=== PATIENT | female | born 1950 | race Hispanic/Latino ===

== ENCOUNTER 2018-10-02 21:21 | Observation (INO) | payer MEDICARE ==
[~2018-10-02] VITALS: Ht 157.5 cm; Wt 83.5 kg
[~2018-10-02 21:21] MED LIST: ASPIRIN EC81 MG PO; BIOTIN PO; BYDUREON2 MG SQ; LECITHIN PO; LEVEMIR100 UNIT/1 SQ; LEVOTHYROXINE100 MCG PO; LOSARTAN POTASS25 MG PO; LUTEIN6 M1 PO; MAGNESIUM PO; METFORMIN HCL500 MG PO; SIMVASTATIN PO; VITAMIN D PO; VITAMIN E400 UNIT PO
--- OUTSIDE RECORDS SUMMARY | 2018-10-02 21:24 | XMS REPORT | Clinical Summary ---
Author Author [facility] Address Unknown Phone Unavailable Care Team Providers Care Family Service Assistant Name Role Phone Julia Santo MD PCP Unavailable Allergies Comments Active Allergy Reactions Severity Noted Date Dry throat and starts coughing Glimepiride Other (See Medium 11/16/2012 Comments) Difficulty talking Lisinopril Other (See Medium 11/16/2012 Comments) Sulfa (Sulfonamide Rash Medium 11/16/2012 Antibiotics) Medications End Date Status Medication Sig Dispensed Refills Start Date Active insulin detemir (LEVEMIR) Inject 20 0 100 unit/mL injection Units into the skin nightly. Active atorvastatin (LIPITOR) 10 Take 10 mg by 0 MG tablet mouth daily. Active levothyroxine (SYNTHROID, Take 100 mcg 0 LEVOTHROID) 100 MCG by mouth tablet daily. Active metFORMIN (GLUCOPHAGE) Take 1,000 mg 0 1000 MG tablet by mouth 2 (two) times daily with breakfast and dinner. Active Problems Not on file Social History Date Tobacco Use Types Packs/Day Years Used Never Smoker Smokeless Tobacco: Never Used Alcohol Use Drinks/Week oz/Week Comments Yes once in a blue carbone Sex Assigned at Date Recorded Not on file Industry Job Start Date Occupation Not on file Not on file Not on file Travel End Travel History Travel Start No recent travel history available. Last Filed Vital Signs Not on file Plan of Treatment Not on file Results Not on fileafter 10/01/2017 Insurance Payer Benefit Subscriber ID Type Phone Address Plan / Group [facility] CARE POS SELECT CHOICE
--- OUTSIDE RECORDS SUMMARY | 2018-10-02 21:25 | XMS REPORT ---
Author Organization Unknown Address [address] [place] [address] Phone [phone] Care Team Providers Care [employer] Operator Name Role Phone DENG 'BASIA' TIFF GUZMAN 3 [phone] RAINE HOUGH DPM FACFAS 120 [phone] GINO GIBSON MD 212 [phone] OSCAR RAO MD 105 [phone] INES ARMSTRONG MD 2 [phone] SANG RAJANSE 111 [phone] Allergies Code Code System Name Reaction Severity Status Onset Lisinopril Cough Active 04/19/2012 180843 RxNorm Glimepiride Active 04/20/2012 Sulfa (Sulfonamide Antibiotics) Active 04/20/2012 865564 RxNorm Amaryl Other Mild to Moderate Active Medications Name Status Start Date Stop Date amoxicillin 875 mg-potassium clavulanate 125 mg tablet Completed 01/09/2016 Aspir-81 81 mg tablet,delayed release Take 1 tablet every day by oral route. Active Not available atorvastatin 10 mg tablet Completed 03/27/2016 atorvastatin 20 mg tablet Take 1 tablet every day by oral route. Active Not available BD Ultra-Fine Short Pen Needle 31 gauge x 5/16" USE UNDER THE SKIN TWICE A DAY Active Not available syxbqakygzbwecj-bdrxyanerawvnyx-GW 2 mg-30 mg-10 mg/5 mL syrup Completed 01/09/2016 cholecalciferol (vitamin D3) 10,000 unit tablet Take 5 tablets every week by oral route. Active Not available ciclopirox 1 % shampoo Completed 03/27/2016 ciprofloxacin 500 mg tablet Completed 01/09/2016 DermacinRx Prizopak 2.5 %-2.5 % topical kit Completed 03/27/2016 diazepam 5 mg tablet Completed 01/09/2016 diclofenac 1.5 % topical drops Completed 03/27/2016 fluconazole 100 mg tablet Take 1 tablet every day by oral route. Active Not available fluocinonide 0.05 % topical solution Completed 03/27/2016 fluticasone 50 mcg/actuation nasal spray,suspension Completed 01/09/2016 Humalog KwikPen (U-100) Insulin 100 unit/mL subcutaneous Inject 5 units 3 times a day by subcutaneous route before meals. Completed 06/03/2017 Humalog KwikPen U-200 Insulin 200 unit/mL (3 mL) subcutaneous Inject 6 units 3 times a day by subcutaneous route before meals. Active Not available Invokana 300 mg tablet Take 1 tablet every day by oral route in the morning for 30 days. Active Not available ketoconazole 2 % topical cream APPLY TO THE AFFECTED AREA(S) BY TOPICAL ROUTE ONCE DAILY for 2 wk Active Not available lecithin Completed 03/27/2016 Levemir FlexTouch U-100 Insulin 100 unit/mL (3 mL) subcutaneous pen Inject 34 units twice a day by sub-q route as directed for 90 days. Completed 06/03/2017 levothyroxine 100 mcg tablet TAKE 1 TABLET BY MOUTH EVERY DAY Active Not available losartan 100 mg tablet TAKE 1 TABLET BY MOUTH DAILY Active Not available meclizine 12.5 mg tablet 1 po tid prn dizziness. Active Not available metformin ER 500 mg tablet,extended release 24 hr TAKE 2 TABLETS BY MOUTH TWICE DAILY DIRECTED Active Not available mometasone 0.1 % topical cream Completed 03/27/2016 montelukast 10 mg tablet Completed 01/09/2016 multivitamin Take one daily Completed 10/01/2016 OneTouch Delica Lancets 33 gauge Active Not available OneTouch Verio strips Check blood sugar 3 times per day Active Not available Anny Zaldivar U-300 Insulin 300 unit/mL (1.5 mL) subcutaneous pen Inject 50 units every day by subcutaneous route in the morning. Active Not available Trulicity 0.75 mg/0.5 mL subcutaneous pen injector Completed 01/09/2016 Trulicity 1.5 mg/0.5 mL subcutaneous pen injector Inject 0.5 mL every week by sub-q route as directed for 84 days. Active 12/26/2016 Not available Vitamin D2 50,000 unit capsule Take 1 capsule every week by oral route as directed. Completed 10/01/2016 Problems Name Status Onset Date Source Hypothyroidism Active 04/17/2012 Mixed Hyperlipidemia Active 04/17/2012 Benign Essential Hypertension Active 04/17/2012 Gastroesophageal Reflux Disease Active 04/19/2012 Allergic Rhinitis Active 10/27/2012 Type II Diabetes Mellitus Uncontrolled Active 10/18/2013 Seborrhea Active 02/18/2014 Procedures Date Name Performed by 06/02/2005 Other Information not available 05/15/2015 Mammogram, Screening Information not available 04/29/2017 MAMMO, Screening, Bilateral [facility] ([facility]) [address] [place] [address] (Work Place) Notes: 12/18/2012: SURGERY APRIL 01, 2014. DR. HOUGH,DISEASE:BROKEN FOOT,COMMENT:03/12/13 UPDATE. IS WEARING BOOT FOR 10 DAYS AND THEN SHOE. HAS HAD THIS PROB FOR 4 MONTHS. CANNOT EXERCISE. CHOLECYSTECTOMY, FOOT SURGERY, SURGERY RIGHT SHOULDER, sinuplasty 12/15 dr jade | 12/18/2012: surgery April 01, 2014. Dr. Hough,disease:BROKEN foot,comment:03/12/13 UPDATE. Is wearing boot for 10 days and then shoe. Has had this prob for 4 months. Cannot exercise. Cholecystectomy foot surgery surgery right shoulder Lab Results Date Name Specimen Result Interpretation Description Value Range Status Address 06/04/2017 Erythrocyte Sedimentation Rate by Westergren Method Normal Sed Rate by Modified Westergren 2 mm/h < or=30 mm/h [facility] Laboratory: [address] [place] [address] 06/03/2017 Hemoglobin a1C, Fingerstick Hemoglobin a1C Fingerstick: 7.3 [facility]: [address] [place] [address] 12/23/2016 CMP, Serum or Plasma Alt 15 U/L 0-55 U/L Final [facility]: [address] [place] [address] Ast 14 U/L 5-34 U/L Final [facility]: [address] [place] [address] Bun 17.0 mg/dL 9.8-20.1 mg/dL Final [facility]: [address] [place] [address] Alk Phos 81 unit/L 40-150 unit/L Final [facility]: [address] [place] [address] High Glucose 162 mg/dL 70-99 mg/dL Final [facility]: [address] Albumin 4.0 g/dL 3.5-5.0 g/dL Final [facility]: [address], [place] Creatinine 0.79 mg/dL 0.57-1.11 mg/dL Final [facility]: [address], [place] eGFR Non- >60 mL/min/1.73m2 >60 mL/min/1.73m2 Final [facility]: [address] Total Bilirubin 0.9 mg/dL 0.2-1.2 mg/dL Final [facility]: [address] [place] [address], [place] eGFR - >60 mL/min/1.73m2 >60 mL/min/1.73m2 Final [facility]: [address], [place] Sodium 139 mEq/L 136-145 mEq/L Final [facility]: [address] [place] [address] Potassium 4.6 mEq/L 3.5-5.1 mEq/L Final [facility]: [address] Chloride 107 mmol/L 98-107 mmol/L Final [facility]: [address] [place] [address], [place] Total Protein 7.2 g/dL 6.4-8.3 g/dL Final [facility] [address] [facility] Calcium 9.0 mg/dL 8.4-10.2 mg/dL Final [facility]: [address] [place] [address] Low Co2 21.4 mmol/L 23.0-31.0 mmol/L Final [facility]: [address] [place] [address], [place] Anion Gap 11 calc Final [facility]: [address], [place] 12/23/2016 Lipid Panel, Serum Hdl 57 mg/dL 40-60 mg/dL Final [facility] [address] [facility] High Triglyceride 242 mg/dL 0-149 mg/dL Final [facility]: [address] [place] [address], [place] VLDL Calc. 48 mg/dL Final [facility]: [address] cholesterol/HDL Ratio 3 mg/dL Final [facility]: [address] non-HDL Cholesterol Calc. 116 mg/dL 0-160 mg/dL Final [facility]: [address] [place] [address] Cholesterol 173 mg/dL 0-199 mg/dL Final [facility]: [address] LDL Calc. 68 mg/dL 0-130 mg/dL Final [facility] [address] [facility] 03/27/2016 CMP, Serum or Plasma Alt 19.0 U/L 0.0-55.0 U/L Final [facility]: [address] Ast 20.0 U/L 5.0-34.0 U/L Final [facility]: [address] Bun 13.0 mg/dL 7.0-20.0 mg/dL Final [facility]: [address] Alk Phos 113.0 unit/L 40.0-150.0 unit/L Final [facility]: [address] High Glucose 151.0 mg/dL 70.0-99.0 mg/dL Final [facility]: [address] Albumin 4.1 g/dL 3.5-5.0 g/dL Final [facility]: [address] [place] [address] Creatinine 0.8 mg/dL 0.6-1.1 mg/dL Final [facility]: [address] [place] [address] eGFR Non- >60 mL/min/1.73m2 >60.0 mL/min/1.73m2 Final [facility]: [address] Total Bilirubin 0.9 mg/dL 0.2-1.2 mg/dL Final [facility]: [address] eGFR - >60 mL/min/1.73m2 >60.0 mL/min/1.73m2 Final [facility]: [address] [place] [address] Sodium 142.0 mEq/L 137.0-144.0 mEq/L Final [facility]: [address] Potassium 4.0 mEq/L 3.5-5.0 mEq/L Final [facility]: [address] [place] [address] Chloride 106.0 mmol/L 101.0-110.0 mmol/L Final [facility]: [address] [place] [address] Total Protein 6.9 g/dL 6.4-8.3 g/dL Final [facility]: [address] [place] [address] Calcium 9.5 mg/dL 8.4-10.2 mg/dL Final [facility]: [address] [place] [address] Co2 25 mmol/L 22-31 mmol/L Final [facility]: [address] [place] [address] Anion Gap 11.0 calc Final [facility]: [address] [place] [address] 03/27/2016 T3, Free, Serum or Plasma T3 Free 2.2 pg/mL 1.7-3.7 pg/mL Final [facility]: [address] [place] [address] 03/27/2016 T4, Free, Serum T4 Free 1.4 NG/dL 0.7-1.5 NG/dL Final [facility]: [address] [place] [address] 03/27/2016 TSH, Serum or Plasma Tsh 0.356 uIU/mL 0.350-4.940 uIU/mL Final [facility]: [address] [place] [address] 03/27/2016 HbA1C (Hemoglobin a1C), Blood High A1C W/eag 7.2 % 1.0-5.7 % Final [facility]: [address] [place] [address] Average Blood Glucose 159.9 mg/dL Final [facility]: [address] [place] [address] 01/09/2016 CMP, Serum or Plasma Alt 12.0 U/L 0.0-55.0 U/L Final [facility]: [address] [place] [address] Ast 16.0 U/L 5.0-34.0 U/L Final [facility]: [address] [place] [address] Bun 16.0 mg/dL 7.0-20.0 mg/dL Final [facility]: [address] [place] [address] Alk Phos 97.0 unit/L 40.0-150.0 unit/L Final [facility]: [address], [place] High Glucose 133.0 mg/dL 70.0-99.0 mg/dL Final [facility]: [address], [place] Albumin 4.1 g/dL 3.5-5.0 g/dL Final [facility]: [address], [place] Creatinine 0.8 mg/dL 0.6-1.1 mg/dL Final [facility]: [address], [place] eGFR Non- >60 mL/min/1.73m2 >60.0 mL/min/1.73m2 Final [facility]: [address], [place] Total Bilirubin 0.9 mg/dL 0.2-1.2 mg/dL Final [facility] [address] [facility] e[facility] - >60 mL/min/1.73m2 >60.0 mL/min/1.73m2 Final [facility]: [address], [place] Sodium 141.0 mEq/L 137.0-144.0 mEq/L Final [facility]: [address], [place] Potassium 4.9 mEq/L 3.5-5.0 mEq/L Final [facility] [address] [facility] Chloride 108.0 mmol/L 101.0-110.0 mmol/L Final [facility] [address] [facility] Total Protein 7.4 g/dL 6.4-8.3 g/dL Final [facility]: [address], [place] Calcium 9.7 mg/dL 8.4-10.2 mg/dL Final [facility] [address] [facility] Low Co2 22.3 mmol/L 23.0-31.0 mmol/L Final [facility] [address] [facility] Anion Gap 10.7 calc Final [facility] [address] [facility] 01/09/2016 Lipid Panel, Serum Hdl 55.0 mg/dL 40.0-60.0 mg/dL Final [facility]: [address] [place] [address] High Triglyceride 211.0 mg/dL 0.0-149.0 mg/dL Final [facility]: [address] VLDL Calc. 42.2 mg/dL Final [facility]: [address] [place] [address] cholesterol/HDL Ratio 4.3 mg/dL Final [facility]: [address] [place] [address] High non-HDL Cholesterol Calc. 179.0 mg/dL 0.0-160.0 mg/dL Final [facility]: [address] [place] [address] High Cholesterol 234.0 mg/dL 0.0-199.0 mg/dL Final [facility]: [address] [place] [address] High LDL Calc. 136.8 mg/dL 0.0-130.0 mg/dL Final [facility]: [address] [place] [address] 01/09/2016 T3, Free, Serum or Plasma T3 Free 2.4 pg/mL 1.7-3.7 pg/mL Final [facility]: [address] [place] [address] 01/09/2016 T4, Free, Serum T4 Free 1.3 NG/dL 0.7-1.5 NG/dL Final [facility]: [address] [place] [address] 01/09/2016 TSH, Serum or Plasma Tsh 0.353 uIU/mL 0.350-4.940 uIU/mL Final [facility]: [address] [place] [address] 01/09/2016 HbA1C (Hemoglobin a1C), Blood High A1C W/eag 6.8 % 1.0-5.7 % Final [facility]: [address] [place] [address] Average Blood Glucose 148.5 mg/dL Final [facility]: [address] [place] [address] 10/11/2015 HbA1C (Hemoglobin a1C), Blood High A1C W/eag 6.9 % 1.0-5.7 % Final [facility]: [address] [place] [address] Average Blood Glucose 151.3 mg/dL Final [facility]: [address] [place] [address] 07/05/2015 HbA1C (Hemoglobin a1C), Blood High A1C W/eag 7.0 % 1.0-5.7 % Final [facility]: [address] Average Blood Glucose 154.2 mg/dL Final [facility]: [address] 07/05/2015 TSH, Serum or Plasma Low Tsh 0.3210 uIU/mL 0.3500-4.9400 uIU/mL Final [facility]: [address] 07/05/2015 T4, Free, Serum T4 Free 1.3 NG/dL 0.7-1.5 NG/dL Final [facility]: [address] 07/05/2015 T3, Free, Serum or Plasma T3 Free 2.5 pg/mL 1.7-3.7 pg/mL Final [facility]: [address] 07/05/2015 Lipid Panel, Serum Hdl 52.0 mg/dL 40.0-60.0 mg/dL Final [facility]: [address] High Triglyceride 244.0 mg/dL 0.0-149.0 mg/dL Final [facility]: [address] VLDL Calc. 48.8 mg/dL Final [facility]: [address] cholesterol/HDL Ratio 3.6 mg/dL Final [facility]: [address] non-HDL Cholesterol Calc. 133.0 mg/dL 0.0-160.0 mg/dL Final [facility]: [address] Cholesterol 185.0 mg/dL 0.0-199.0 mg/dL Final [facility]: [address] LDL Calc. 84.2 mg/dL 0.0-130.0 mg/dL Final [facility]: [address] 07/05/2015 CMP, Serum or Plasma Alt 24.0 U/L 0.0-55.0 U/L Final [facility]: [address] Ast 21.0 U/L 5.0-34.0 U/L Final [facility]: [address] Bun 17.0 mg/dL 7.0-20.0 mg/dL Final [facility]: [address] [place] Alk Phos 92.0 unit/L 40.0-150.0 unit/L Final [facility]: [address], [place] High Glucose 128.0 mg/dL 70.0-99.0 mg/dL Final [facility]: [address], [place] Albumin 4.3 g/dL 3.5-5.0 g/dL Final [facility]: [address], [place] Creatinine 0.7 mg/dL 0.6-1.1 mg/dL Final [facility] [address] [facility] e[facility] Non- 84.8 mL/min/1.73m2 >60.0 mL/min/1.73m2 Final [facility] [address] [facility] High Total Bilirubin 1.3 mg/dL 0.2-1.2 mg/dL Final [facility] [address] [facility] eGFR - 109.0 mL/min/1.73m2 >60.0 mL/min/1.73m2 Final [facility] [address] [facility] Sodium 140.0 mEq/L 137.0-144.0 mEq/L Final [facility] [address] [facility] Potassium 4.6 mEq/L 3.5-5.0 mEq/L Final [facility] [address] [facility] Chloride 105.0 mmol/L 101.0-110.0 mmol/L Final [facility]: [address], [place] Total Protein 7.5 g/dL 6.4-8.3 g/dL Final [facility] [address] [facility] Calcium 10.2 mg/dL 8.4-10.2 mg/dL Final [facility]: [address], [place] Co2 25 mmol/L 23-31 mmol/L Final [facility]: [address] [facility] Anion Gap 10.3 calc Final [facility]: [address], [place] Urinalysis, Dipstick Color Color light yellow [facility]: [address], [place] Color Appearance clear [facility]: [address], [place] Color Glucose 500 [facility]: [address], [place] Color Bilirubin negative [facility]: [address], [place] Color Ketones negative [facility]: [address], [place] Color Specific Moran 1.020 [facility]: [address], [place] Color Blood negative [facility]: [address] [place] Color PH 5.5 [facility]: [address] [place] Color Protein negative [facility]: [address], [place] Color Urobilinogen 0.2 [facility]: [address], [place] Color Nitrites negative [facility]: [address], [place] Color Leukocytes negative [facility]: [address], [place] Past Encounters 09/08/2017 Candidiasis of Skin Deng Santo MD: [address] [facility], [facility] [address] [address], Ph. 06/03/2017 Type II Diabetes Mellitus Uncontrolled Susu Jarvis MD: [address] [facility] [address] [address], Ph. 06/03/2017 Mixed Hyperlipidemia; Benign Essential Hypertension; Vertigo; Headache; Weakness of Left Leg Deng Santo MD: [address] [facility], [facility] [address] [address], Ph. 12/23/2016 Mixed Hyperlipidemia; Benign Essential Hypertension Deng Santo MD: [address] [facility] [address] [address], Ph. 10/01/2016 Type II Diabetes Mellitus Uncontrolled; Hypothyroidism; Benign Essential Hypertension; Mixed Hyperlipidemia Susu Jarvis MD: [address], [facility] [address], [place] [address], Ph. 03/27/2016 Type II Diabetes Mellitus Uncontrolled; Type 2 Diabetes Mellitus; Hypothyroidism; Benign Essential Hypertension Susu Jarvis MD: [address] [facility], [address], [place] [address], Ph. 03/27/2016 Dysuria; Urinary Tract Infectious Disease; Influenza Vaccination; Immunization Deng Santo MD: [address] [facility], [address], [place] [address], Ph. 01/17/2016 Type II Diabetes Mellitus Uncontrolled ALAN Escobedo: [address] [facility], [address], [place] [address], Ph. 01/09/2016 Type 2 Diabetes Mellitus; Benign Essential Hypertension; Mixed Hyperlipidemia; Hypothyroidism; Type II Diabetes Mellitus Uncontrolled Susu Jarvis MD: [address] [facility], [address], [place] [address], Ph. Social History Smoking Status Former Smoker (2 PPD) Vaccine List Vaccine Type influenza, injectable, quadrivalent 02/20/20151 mL 05/12/2017 influenza, injectable, quadrivalent, preservative free 03/27/2016 influenza, seasonal, injectable 02/06/20120.5 mL 02/17/20130.5 mL pneumococcal conjugate PCV 13 03/27/20160.5 mL pneumococcal polysaccharide PPV23 06/02/2008 Tdap 02/18/20140.5 mL zoster 11/30/2014 Plan of Care Patient Instructions NURSING: NEEDS SAMPLES OF TOUJEO and discount card NEEDS HUMALOG SAMPLES AND DISCOUNT CARD 1. Eat breakfast, lunch, dinner everyday. You may also need a snack between meals. 2. Move Levemir to 6am and 6pm 3. Continue other meds but take morning doses in am and pm doses with dinner 4. Continue walking daily. NURSING: NEEDS IPRO TODAY Reminders Provider Appointments None recorded. Lab None recorded. Referral None recorded. Procedures None recorded. Surgeries None recorded. Imaging None recorded. Vitals 09/08/2017 02:15PM Est Patient Height Weight BMI Blood Pressure 5 ft 1.5 in 177.6 lbs 33 kg/m2 122/80 mm[Hg] 06/03/2017 01:45PM Diabetic Height Weight BMI Blood Pressure 5 ft 1.5 in 178 lbs 33.1 kg/m2 136/72 mm[Hg] 06/03/2017 11:15AM Est Patient Height 5 ft 1.5 in 12/23/2016 08:15AM Est Patient Height Weight BMI Blood Pressure 5 ft 1.5 in 179.2 lbs 33.3 kg/m2 114/80 mm[Hg] 10/01/2016 11:00AM Diabetic Height Weight BMI Blood Pressure 5 ft 1.5 in 176.2 lbs 32.8 kg/m2 133/65 mm[Hg] 03/27/2016 01:45PM Diabetic Height Weight BMI Blood Pressure 5 ft 1.5 in 175.4 lbs 32.6 kg/m2 126/56 mm[Hg] 03/27/2016 09:30AM Est Patient Height Weight BMI Blood Pressure 5 ft 1.5 in 175 lbs 32.5 kg/m2 130/84 mm[Hg] 01/09/2016 08:30AM Diabetic Height Weight BMI Blood Pressure 5 ft 1.5 in 170.6 lbs 31.7 kg/m2 124/84 mm[Hg] 12/28/2015 Height Weight BMI Blood Pressure 5 ft 1.5 in 171.2 lbs 31.82 kg/m2 112/74 mm[Hg] 10/11/2015 Height Weight BMI Blood Pressure 5 ft 1.5 in 171.2 lbs 31.82 kg/m2 118/76 mm[Hg] 07/05/2015 Height Weight BMI Blood Pressure 5 ft 1.5 in 177.6 lbs 33.01 kg/m2 133/86 mm[Hg] 04/04/2015 Height Weight BMI Blood Pressure 5 ft 1.5 in 182.5 lbs 33.92 kg/m2 137/77 mm[Hg] 02/20/2015 Height Weight BMI Blood Pressure 5 ft 1.5 in 182.6 lbs 33.94 kg/m2 138/86 mm[Hg] 12/05/2014 Height Weight BMI Blood Pressure 5 ft 1.5 in 187.4 lbs 34.84 kg/m2 122/72 mm[Hg] 11/04/2014 Height Weight BMI Blood Pressure 5 ft 1.5 in 189.5 lbs 35.23 kg/m2 134/69 mm[Hg] 10/26/2014 Height Weight BMI Blood Pressure 5 ft 1.5 in 185.2 lbs 34.43 kg/m2 142/78 mm[Hg] 08/19/2014 Height Weight BMI Blood Pressure 5 ft 1.5 in 186.8 lbs 34.72 kg/m2 161/72 mm[Hg] 05/23/2014 Height Weight BMI Blood Pressure 5 ft 1.5 in 185.2 lbs 34.43 kg/m2 160/81 mm[Hg] 05/04/2014 Height Weight BMI Blood Pressure 5 ft 1.5 in 173 lbs 32.16 kg/m2 140/80 mm[Hg] 03/18/2014 Height Weight BMI Blood Pressure 5 ft 1.5 in 184.9 lbs 34.37 kg/m2 137/72 mm[Hg] 02/18/2014 Height Weight BMI Blood Pressure 5 ft 1.5 in 179.2 lbs 33.31 kg/m2 130/80 mm[Hg] 12/16/2013 Height Weight BMI Blood Pressure 5 ft 1.5 in 178.8 lbs 33.24 kg/m2 (1) 130/88 mm[Hg] (2) 140/73 mm[Hg] 10/22/2013 BMI 33.46 kg/m2 10/22/2013 Height Weight Blood Pressure 5 ft 1.5 in 180 lbs 130/80 mm[Hg] 10/18/2013 Height Weight BMI Blood Pressure 5 ft 1.5 in 178 lbs 33.08 kg/m2 140/69 mm[Hg] 09/20/2013 Height Weight BMI Blood Pressure 5 ft 1.5 in 176.8 lbs 32.86 kg/m2 130/70 mm[Hg] 08/10/2013 Height Weight BMI Blood Pressure 5 ft 1.5 in (1) 179.8 lbs (2) 182.6 lbs (1) 33.42 kg/m2 (2) 33.94 kg/m2 (1) 130/72 mm[Hg] (2) 117/86 mm[Hg] 06/18/2013 Height Weight BMI Blood Pressure 5 ft 3 in 185.2 lbs 32.80 kg/m2 146/82 mm[Hg] 03/12/2013 Height Weight BMI Blood Pressure 5 ft 3 in 183.3 lbs 32.47 kg/m2 137/79 mm[Hg] 02/17/2013 Height Weight BMI Blood Pressure 5 ft 3 in 176.6 lbs 31.28 kg/m2 120/86 mm[Hg] 12/18/2012 Height Weight BMI Blood Pressure 5 ft 3 in 183 lbs 32.41 kg/m2 165/83 mm[Hg] 10/27/2012 Height Weight BMI Blood Pressure 5 ft 3 in 180.8 lbs 32.02 kg/m2 130/90 mm[Hg] 09/04/2012 Height Weight BMI Blood Pressure 5 ft 3 in 179.6 lbs 31.81 kg/m2 143/65 mm[Hg] 04/20/2012 Height Weight BMI Blood Pressure 5 ft 3 in 175 lbs 31.00 kg/m2 130/90 mm[Hg] 04/17/2012 Height Weight BMI Blood Pressure 5 ft 3 in 173 lbs 30.64 kg/m2 142/76 mm[Hg]
[2018-10-02] MEDS ORDERED: SODIUM CHLORIDE 0.9% 1000ML 1,000 ML IV STA (21:47)
[2018-10-02] MEDS ORDERED: ONDANSETRON HCL INJ 2MG/ML 2ML 2 MG/ML VIAL IV ONE (21:47)
[2018-10-02] MEDS ORDERED: PANTOPRAZOLE 40 MG 10ML VIAL IV ONE (21:47)
[2018-10-02 22:05] LABS: BASOPHILS % 0.3 % (0.0-1.0); EOSINOPHILS % 0.3 % (0.0-6.0); HEMATOCRIT 42.4 % (34.2-44.1); HEMOGLOBIN 14.6 g/dL (12.0-16.0); LYMPHOCYTES # (AUTO) 1.6 (1.0-3.2); LYMPHOCYTES % 11.9 % (18.0-39.1); MEAN CORPUSCULAR HEMOGLOBIN 31.8 pg (28-32); MEAN CORPUSCULAR HGB CONC 34.4 g/dL (31-35); MEAN CORPUSCULAR VOLUME 92.4 fL (81-99); MONOCYTES # (AUTO) 0.9 (0.2-0.8); MONOCYTES % 6.4 % (4.4-11.3); NEUTROPHILS # (AUTO) 10.9 (2.1-6.9); NEUTROPHILS % 80.7 % (38.7-80.0); PLATELET COUNT 282 x10e3/uL (140-360); RED BLOOD COUNT 4.59 x10e6/uL (3.6-5.1); RED CELL DISTRIBUTION WIDTH 12.2 % (11.7-14.4)
[2018-10-02] MEDS ORDERED: MORPHINE SULFATE INJ 4 MG/ML INJ 1ML ONE (22:07)
[2018-10-02] MEDS ORDERED: MORPHINE SULFATE INJ 4 MG/ML INJ 1ML IV STA (22:09)
[2018-10-02 22:23] LABS: ALANINE AMINOTRANSFERASE 22 IU/L (0-55); ALBUMIN 4.2 g/dL (3.5-5.0); ALBUMIN/GLOBULIN RATIO 1.2 (0.8-2.0); ALKALINE PHOSPHATASE 93 IU/L (40-150); ANION GAP 14.7 mmol/L (8-16); BLOOD UREA NITROGEN 18 mg/dL (7-26); BUN/CREATININE RATIO 22 (6-25); CARBON DIOXIDE 26 mmol/L (22-29); CHLORIDE 97 mmol/L (98-107); CREATINE KINASE 147 IU/L (29-168); CREATININE, SERUM 0.82 mg/dL (0.57-1.11); EST GLOMERULAR FILTRATION RATE > 60 ML/MIN (60-); GLUCOSE 160 mg/dL (74-118); LIPASE 23 U/L (8-78); POTASSIUM 3.7 mmol/L (3.5-5.1); SODIUM 134 mmol/L (136-145)
--- NOTE | 2018-10-02 22:23 | NUR ---
dr tillman reduced hernia, pt tolerated well. awake alert skin w/d resp nonlab, nad noted.
--- NOTE | 2018-10-02 22:45 | NUR ---
denies pain, vomited x1. awake alert skin w/d resp nonlab. nad noted
[2018-10-02] MEDS ORDERED: SODIUM CHLORIDE 0.9% 50ML 50 ML ONE (22:53)
[2018-10-02] MEDS ORDERED: IOPAMIDOL 370 MG/ML 200 ML INFUS..BTL INJ ONE (22:53)
--- NOTE | 2018-10-02 23:01 | NUR ---
pt states she is having cont nausea, states she thinks her sugar is low, fsbs 177. pt to ct
--- NOTE | 2018-10-02 23:45 | Diagnostic Imaging Report ---
EXAM: CT Abdomen and Pelvis WITH contrast INDICATION: ^abd pain COMPARISON: None. TECHNIQUE: Abdomen and pelvis were scanned utilizing a multidetector helical scanner from the lung base to the pubic symphysis after administration of IV contrast. Coronal and sagittal reformations were obtained. Dose modulation, iterative reconstruction, and/or weight based adjustment of the mA/kV was utilized to reduce the radiation dose to as low as reasonably achievable. Routine protocol was performed. Scan was performed when during portal venous phase. IV CONTRAST: 100 mL of Isovue-370 ORAL CONTRAST: Water COMPLICATIONS: None RADIATION DOSE: Total DLP: 698.01 mGy*cm Estimated effective dose: (DLP x 0.015 x size factor) mSv CTDIvol has been reviewed. It is below the limits set by the Radiation Protocol Committee (RPC). FINDINGS: LINES and TUBES: None. LOWER THORAX: Mild bibasilar subsegmental atelectasis. A small left Bochdalek hernia. HEPATOBILIARY: Small foci of fat deposition adjacent to the falciform ligament. No focal hepatic lesions. Mild intra and extra hepatic biliary dilatation, likely due to reservoir effect. GALLBLADDER: Surgically absent. SPLEEN: No splenomegaly. PANCREAS: No focal masses or ductal dilatation. ADRENALS: 0.7 cm left and 1.3 cm right adrenal nodules. KIDNEYS/URETERS: Kidneys enhance symmetrically. No hydronephrosis. No cystic or solid mass lesions. No stones. GI TRACT: No abnormal distention, wall thickening, or evidence of bowel obstruction. Fluid-filled loops of small bowel. Mild colonic diverticulosis without evidence of diverticulitis. Appendix is normal. PELVIC ORGANS/BLADDER: Unremarkable. LYMPH NODES: No lymphadenopathy. VESSELS: Unremarkable. PERITONEUM / RETROPERITONEUM: No free air. Trace ascites. BONES: Unremarkable. SOFT TISSUES: Small fat-containing umbilical and right inguinal hernia. IMPRESSION: 1. Fluid-filled loops of small bowel, could represent gastroenteritis in the appropriate clinical context. Otherwise, no acute inflammatory process in the abdomen/pelvis. 2. Trace ascites. 3. Cholecystectomy with mild biliary dilatation, likely due to post cholecystectomy reservoir effect. 4. Bilateral adrenal nodules can be further characterized with nonurgent adrenal mass protocol CT. Signed by: Dr. Demarcus Adams MD on 10/02/2018 11:42 PM
[2018-10-03 01:17] LABS: CLARITY,URINE HAZY (CLEAR); COLOR,URINE YELLOW (YELLOW); LEUKOCYTE ESTERASE ,URINE 1+ (NEGATIVE); NITRITE,URINE NEGATIVE (NEGATIVE)
[2018-10-03 01:18] LABS: BACTERIA,URINE MANY /HPF; BILIRUBIN,URINE NEGATIVE (NEGATIVE); EPITHELIAL CELLS,URINE MODERATE /LPF; KETONES,URINE NEGATIVE (NEGATIVE); PROTEIN,URINE DIPSTICK NEGATIVE (NEGATIVE); RBC,URINE 0-5 /HPF (0-5); URINE UROBILINOGEN 0.2 mg/dL (0.2 - 1); WBC,URINE (MAN) >50 /HPF (0-5)
[2018-10-03 01:19] LABS: AMORPHOUS SEDIMENT,URINE MODERATE (FEW)
[2018-10-03] MEDS ORDERED: ONDANSETRON HCL INJ 2MG/ML 2ML 2 MG/ML VIAL IV STA (01:39)
[2018-10-03] MEDS ORDERED: MECLIZINE HCL 12.5 MG TAB PO STA (01:39)
[2018-10-03] MEDS ORDERED: MECLIZINE HCL 12.5 MG TAB ONE (01:43)
[2018-10-03] MEDS ORDERED: ONDANSETRON HCL INJ 2MG/ML 2ML 2 MG/ML VIAL ONE (01:43)
[2018-10-03] MEDS ORDERED: CEFTRIAXONE SOD 1 GM/NS 50 ML 50 ML IV ONE (01:45)
[2018-10-03] MEDS: SODIUM CHLORIDE 0.9% 1000ML 1,000 ML IV SCH ×2 (02:13→14:33)
--- NOTE | 2018-10-03 02:13 | NUR ---
pt states she feels worse after medications, cont to complain of nausea and dizziness. dr tillman aware. awake alert skin w/d resp nonlab. nad noted.
[2018-10-03] MEDS ORDERED: METRONIDAZOLE 500MG/NS 100ML 100 ML IV SCH (02:15)
[2018-10-03] MEDS ORDERED: CIPROFLOXACIN 400 MG/D5W 200ML 200 ML IV SCH (02:15)
[2018-10-03] MEDS ORDERED: LOSARTAN POTAS100 MG PO (02:26)
[2018-10-03] MEDS ORDERED: ATORVASTATIN CA20 MG PO (02:26)
[2018-10-03] MEDS ORDERED: ACTOS15 MG PO (02:26)
[2018-10-03] MEDS ORDERED: TOUJEO SC (02:26)
--- OUTSIDE RECORDS SUMMARY | 2018-10-03 02:43 | XMS REPORT | Clinical Summary ---
Author Author [facility] Address Unknown Phone Unavailable Care Team Providers Care Director Of Student Aid Name Role Phone Julia Santo MD PCP [...] Not on file Results Not on fileafter 10/02/2017 Insurance Payer Benefit Subscriber ID Type Phone Address Plan / Group [facility] HMO/POS CARE POS SELECT CHOICE
--- OUTSIDE RECORDS SUMMARY | 2018-10-03 02:43 | XMS REPORT ---
[facility] Address Unknown Phone Unavailable Care Team Providers Care Pattern And Chain Maker Name Role Phone Jose TOLLIVER Unavailable Unavailable Problems This patient has no known problems. Allergies, Adverse Reactions, Alerts This patient has no known allergies or adverse reactions. Medications This patient has no known medications. Results Test Description Test Time Test Comments Text Results Atomic Results Result Comments CT ABDOMEN/PELVIS W 2018-10-02 23:15:00 [place] [address] Patient Name: ELISSA COREAS MR #: [id number] : 1950 Age/Sex: 67/F Req #: [id number] Adm Physician: Ordered by: OWEN TOLLIVER MD Report #: [id number] Location: ER Room/Bed: Procedure: [id number] CT/CT ABDOMEN/PELVIS W Exam Date: Exam Time: REPORT STATUS: Signed EXAM: CT Abdomen and Pelvis WITH contrast INDICATION: abd pain COMPARISON: None. TECHNIQUE: Abdomen and pelvis were scanned utilizing a multidetector helical scanner from the lung base to the pubic symphysis after administration of IV contrast. Coronal and sagittal reformations were obtained. Dose modulation, iterative reconstruction, and/or weight based adjustment of the mA/kV was utilized to reduce the radiation dose to as low as reasonably achievable. Routine protocol was performed. Scan was performed when during portal venous phase. IV CONTRAST: 100 mL of Isovue-370 ORAL CONTRAST: Water COMPLICATIONS: None RADIATION DOSE: Total DLP: 698.01 mGy*cm Estimated effective dose: (DLP x 0.015 x size factor) mSv CTDIvol has been reviewed. It is below the limits set by the Radiation Protocol Committee (RPC). FINDINGS: LINES and TUBES: None. LOWER THORAX: Mild bibasilar subsegmental atelectasis. A small left Bochdalek hernia. HEPATOBILIARY: Small foci of fat deposition adjacent to the falciform ligament. No focal hepatic lesions. Mild intra and extra hepatic biliary dilatation, likely due to reservoir effect. GALLBLADDER: Surgically absent. SPLEEN: No splenomegaly. PANCREAS: No focal masses or ductal dilatation. ADRENALS: 0.7 cm left and 1.3 cm right adrenal nodules. KIDNEYS/URETERS: Kidneys enhance symmetrically. No hydronephrosis. No cystic or solid mass lesions. No stones. GI TRACT: No abnormal distention, wall thickening, or evidence of bowel obstruction. Fluid- filled loops of small bowel. Mild colonic diverticulosis without evidence of diverticulitis. Appendix is normal. PELVIC ORGANS/BLADDER: Unremarkable. LYMPH NODES: No lymphadenopathy. VESSELS: Unremarkable. PERITONEUM / RETROPERITONEUM: No free air. Trace ascites. BONES: Unremarkable. SOFT TISSUES: Small fat-containing umbilical and right inguinal hernia. IMPRESSION: 1. Fluid-filled loops of small bowel, could represent gastroenteritis in the appropriate clinical context. Otherwise, no acute inflammatory process in the abdomen/pelvis. 2. Trace ascites. 3. Cholecystectomy with mild biliary dilatation, likely due to post cholecystectomy reservoir effect. 4. Bilateral adrenal nodules can be further characterized with nonurgent adrenal mass protocol CT. Signed by: Dr. Demarcus Chambers MD on 10/02/2018 11:42 PM Dictated By: DEMARCUS CHAMBERS MD 41 Transcribed By: STEPHANY on 10/02/182341 COPY TO: OWEN TOLLIVER MD
[2018-10-03] MEDS ORDERED: PROMETHAZINE HCL (IM) 25 MG/ML VIAL IM ONE (04:15)
[2018-10-03] MEDS ORDERED: PROMETHAZINE HCL (IM) 25 MG/ML VIAL IM PRN (04:15)
[2018-10-03] MEDS ORDERED: PROMETHAZINE 25MG/SOD CHL 0.9% 50 ML ONE (04:19)
[2018-10-03 04:30] VITALS: BP 136/62
[2018-10-03] MEDS ORDERED: PROMETHAZINE 25MG/ NS 50ML (IV) IV ONE (04:30)
--- NOTE | 2018-10-03 04:30 | NUR ---
Received patient from the E.R. via stretcher. Patient is able to tranfer to bed from stretcher with assistance. Drowsy but arousable. IV to right AC 20G intact. Patient was oriented to room. Call light within reached.
[2018-10-03 05:53] VITALS: BP 136/62
[2018-10-03] MEDS ORDERED: ACETAMINOPHEN 325 MG TAB PO PRN (07:15)
[2018-10-03] MEDS ORDERED: ONDANSETRON HCL INJ 2MG/ML 2ML 2 MG/ML VIAL IV PRN (07:45)
[2018-10-03] MEDS ORDERED: DEXTROSE 50% SYRINGE 50 ML IV PRN (07:45)
[2018-10-03 07:59] VITALS: BP 108/55
[2018-10-03] MEDS: INSULIN REGULAR, HUMAN 100 UNIT/1 ML 3ML VIAL SQ SCH ×2 (08:03→12:25)
[2018-10-03 08:06] VITALS: BP 108/55
--- NOTE | 2018-10-03 09:21 | NUR ---
CASE MANAGEMENT INITIAL ASSESSMENT Glassware Verifier to bedside to discuss plan of care with patient/family. CM/SW role and care transitions discussed. Anticipated discharge plan discussed along with duration of care. CM/SW discussed patients right to make decisions in care. CM/SW work hours given. Patient lives: SON Admit/Transfer: ED Hospital/ER visits since last admit:0 POA/Emergency contact: SON: TERESA [phone] Current/Previous Home Health: NONE PCP/Follow-up Care: DR. BASIA MATTHEW Current/Previous DME: NONE Medications (referring to index hospitalization or the first time you were in the hospital) a. Were changes made in your medications when you were in the hospital on [date of index hospitalization]? Yes X No Not sure Explain: Note: If no or not sure, please skip to question d b. Did you understand the changes? Yes No Explain: c. Were you able to obtain your new medications right away? Yes No n/a SNF only Explain: d. Were you able to take your medications like the doctor wanted you to? X Yes No Explain: e. Did the hospital give you an accurate, easy to understand list of medications when you left? Yes No n/a SNF only Explain: NO PREVIOUS HOSP VISIT Scale of 1-10 how comfortable does patient feel with disease management in outpatient settin Other Services: 0 Employment Status: RETIRED Areas of Concerns: NONE Referral Needs: NO Education Needs: EDUCATED ON BECKER LETTER IMM/BECKER given and signed (if applicable): YES, BECKER Goal for discharge:RETURN HOME WITH SON CM/SW left business card at the bedside with contact information. Name and number was also written on the patients whiteboard. Patient verbalized understanding of discussion. CM will follow-up with ongoing discharge and transition of care needs.
[2018-10-03 12:36] VITALS: BP 110/56
--- NOTE | 2018-10-03 15:17 | NUR ---
blood sugar 51. sandwich and apple juice given.
[2018-10-03 16:03] VITALS: BP 102/54
[2018-10-03 19:54] LABS: BASOPHILS % 0.4 % (0.0-1.0); EOSINOPHILS # (AUTO) 0.1 (0.0-0.4); EOSINOPHILS % 1.5 % (0.0-6.0); HEMATOCRIT 34.9 % (34.2-44.1); LYMPHOCYTES # (AUTO) 2.3 (1.0-3.2); MEAN CORPUSCULAR HGB CONC 33.5 g/dL (31-35); MEAN CORPUSCULAR VOLUME 95.4 fL (81-99); MONOCYTES # (AUTO) 0.9 (0.2-0.8); MONOCYTES % 11.9 % (4.4-11.3); NEUTROPHILS # (AUTO) 4.5 (2.1-6.9); NEUTROPHILS % 57.1 % (38.7-80.0); PLATELET COUNT 235 x10e3/uL (140-360); RED BLOOD COUNT 3.66 x10e6/uL (3.6-5.1); RED CELL DISTRIBUTION WIDTH 12.6 % (11.7-14.4)
[2018-10-03] MEDS ORDERED: KEFLEX500 MG PO (19:55)
[2018-10-03] MEDS ORDERED: FAMOTIDINE20 MG PO (19:55)
[2018-10-03 20:10] LABS: INR 0.9; PROTHROMBIN TIME 12.6 seconds (11.9-14.5)
--- NOTE | 2018-10-03 20:10 | NUR ---
dr. perez notified that patient hgb dropped from 14.6 to 11.7. No new orders. states to continue discharge patient.
[2018-10-03 20:11] LABS: HEMOGLOBIN 11.7 g/dL (12.0-16.0); PARTIAL THROMBOPLASTIN TIME 30.4 seconds (23.8-35.5)
[2018-10-03 20:18] LABS: CHOL/HDL RATIO 1.8 (3.0-3.6)
--- NOTE | 2018-10-03 20:25 | NUR ---
Patient was discharged alert and oriented with no complaints.
[2018-10-03 20:27] LABS: ALANINE AMINOTRANSFERASE 178 IU/L (0-55); ALBUMIN/GLOBULIN RATIO 1.1 (0.8-2.0); ALKALINE PHOSPHATASE 99 IU/L (40-150); ANION GAP 10.9 mmol/L (8-16); BLOOD UREA NITROGEN 17 mg/dL (7-26); BUN/CREATININE RATIO 21 (6-25); CALCIUM 8.5 mg/dL (8.4-10.2); CARBON DIOXIDE 26 mmol/L (22-29); CHLORIDE 106 mmol/L (98-107); CREATININE, SERUM 0.82 mg/dL (0.57-1.11); EST GLOMERULAR FILTRATION RATE > 60 ML/MIN (60-); GLUCOSE 188 mg/dL (74-118); POTASSIUM 3.9 mmol/L (3.5-5.1); SODIUM 139 mmol/L (136-145)
[2018-10-04] MEDS ORDERED: LEVOTHYROXINE SODIUM 100 MCG TAB PO SCH (06:00)
[2018-10-04] MEDS ORDERED: FAMOTIDINE 20 MG TAB PO SCH (07:30)
[2018-10-04] MEDS ORDERED: LOSARTAN POTASSIUM 100 MG TAB PO SCH (09:00)
[2018-10-04] MEDS ORDERED: ENOXAPARIN SOD INJ 40 MG/0.4 ML SYR SC SCH (17:00)
[2018-10-04] MEDS ORDERED: ATORVASTATIN 20 MG TAB PO SCH (21:00)
== END 2018-10-03 19:50 | disposition home or self-care (01) ==
LOC: ER 21:21 → ERHOLD 10-03 02:40 → IMCU 10-03 04:29
PROVIDERS: ADMIT Internal Medicine; ATTEND Internal Medicine
DX: A04.4 Other intestinal Escherichia coli infections (principal); N30.01 Acute cystitis with hematuria; K42.9 Umbilical hernia without obstruction or gangrene; E83.52 Hypercalcemia; Z88.2 Allergy status to sulfonamides; Z88.8 Allergy status to other drugs, medicaments and biological substances
CPT/HCPCS: 36415; 74177; 80053 ×2; 80061; 81001; 82330; 82550; 82553; 82948 ×2; 83036; 83690; 83970; 84484; 85025 ×2; 85610; 85730; 87040; 87086; 96374; 99284; C9113; G0378; J0696; J0744; J1817; J2270; J2405 ×2; J2550; J7030 ×2; J8597; Q9967

== ENCOUNTER → 2019-11-25 | Emergency (ER) | payer MEDICARE ==
[~2019-11-25] VITALS: Ht 157.5 cm; Wt 83.5 kg
[~2019-11-25] MED LIST changes: +ACTOS15 MG PO; +ATORVASTATIN CA20 MG PO; +FAMOTIDINE20 MG PO; +KEFLEX500 MG PO; +LOSARTAN POTAS100 MG PO; +TOUJEO SC
--- NOTE | 2019-11-25 18:34 | Emergency Department Note ---
History of Present Illnes History of Present Illness Chief Complaint: General Medicine Complaints History of Present Illness This is a 69 year old female arrives to the ED with right calf pain, patient states pain started while she was driving and she had to ticket puller and shake her leg out. She states she is very worried she may have a DVT because her son checked it on his computer. Patient denies any history of DVTs, no history o f a PE Historian: Patient Arrival Mode: Car Onset (how long ago): hour(s) Radiation: Reports non-radiation Severity: mild Onset quality: sudden Timing of current episode: intermittent Progression: resolved Chronicity: recurrent Relieving factors: none Exacerbating factors: none Past Medical/Family History Physician Review I have reviewed the patient's past medical and family history. Any updates have been documented here. Past Medical History Recent Fever: No Clinical Suspicion of Infectio: No New/Unexplained Change in Ment: No Past Medical History: Hypertension, Diabetes, GERD, Hyperlipedemia Past Surgical History: Cholecysctectomy, PCI Social History Smoking Cessation: Never Smoker Counseling Performed: Yes Alcohol Use: None Any Illegal Drug Use: No TB Exposure/Symptoms: No Physically hurt or threatened: No Family History Family history of heart diseas: No Other Last Tetanus: UTD Any Pre-Existing Lines (PICC,: No Is patient up to date on immun: Yes Last Flu: 2019 Last Pneumovax: unknown Review of Systems Review of Systems Constitutional: Reports no symptoms EENTM: Reports no symptoms Cardiovascular: Reports no symptoms Respiratory: Reports no symptoms Gastrointestinal: Reports no symptoms Genitourinary: Reports no symptoms Musculoskeletal: Reports as per HPI Integumentary: Reports no symptoms Neurological: Reports no symptoms Psychological: Reports no symptoms Endocrine: Reports no symptoms Hematological/Lymphatic: Reports no symptoms Physical Exam Related Data Allergies: Coded Allergies: Sulfa (Sulfonamide Antibiotics) (Verified Allergy, Mild, HIVES, 11/25/19) glimepiride (Verified Allergy, Mild, "TONGUE TIE, BITE MY TONGUE", 11/25/19) lisinopril (Verified Allergy, Mild, "TONGUE TIE, BITE MY TONGUE", 11/25/19) Triage Vital Signs Vital Signs Date Time Temp Pulse Resp B/P (MAP) Pulse Ox O2 Delivery O2 Flow Rate FiO2 11/25/19 17:16 98.8 79 20 142/59 99 Vital signs reviewed: Yes Physical Exam CONSTITUTIONAL Constitutional: Present well-developed, Present well-nourished HENT HENT: Present normocephalic, Present atraumatic, Present oropharynx clear/moist, Present nose normal HENT L/R: Present left ext ear normal, Present right ext ear normal EYES Eyes: Reports PERRL, Reports conjunctivae normal NECK Neck: Present ROM normal PULMONARY Pulmonary: Present effort normal, Present breath sounds normal CARDIOVASCULAR Cardiovascular: Present regular rhythm, Present heart sounds normal, Present capillary refill normal, Present normal rate GASTROINTESTINAL Abdominal: Present soft, Present nontender, Present bowel sounds normal GENITOURINARY Genitourinary: Present exam deferred SKIN Skin: Present warm, Present dry MUSCULOSKELETAL Musculoskeletal: Present ROM normal NEUROLOGICAL Neurological: Present alert, Present oriented x 3, Present no gross motor or sensory deficits PSYCHOLOGICAL Psychological: Present mood/affect normal, Present judgement normal Assessment & Plan Medical Decision Making MDM 69 female arrived to the ED of right calf pain, patient calf soft, no tenderness, normal to touch, compartments are soft. Spoke to patient at length about low suspicion of a DVT given her description of symptoms and spontaneously resolution. Patient informed likely may have been a muscle spasm, patient expressed understanding states she still would like a DVT. Patient signed out to Dr. Gracia to follow-up lower extremity duplex, patient will likely be discharged home. Assessment & Plan Final Impression: (1) Calf pain Depart Disposition: HOME, SELF-CARE Last Vital Signs Date Time Temp Pulse Resp B/P (MAP) Pulse Ox O2 Delivery O2 Flow Rate FiO2 11/25/19 18:01 70 16 112/69 100 11/25/19 17:16 98.8 Home Meds Active Scripts Cephalexin Monohydrate (KEFLEX) 500 Mg Capsule, 500 MG PO Q12H for 5 Days Prov:ROBE BHAKTA MD 10/03/18 Famotidine (FAMOTIDINE) 20 Mg Tab, 20 MG PO BIDAC for 30 Days, TAB Prov:ROBE BHAKTA MD 10/03/18 Reported Medications [Toujeo] 300 UNITS No Conflict Check, 35 UNITS SC DAILY 10/03/18 Atorvastatin Calcium (ATORVASTATIN CALCIUM) 20 Mg Tablet, 20 MG PO DAILY 10/03/18 Losartan Potassium (LOSARTAN POTASSIUM) 100 Mg Tablet, 100 MG PO DAILY 10/03/18 Pioglitazone Hcl* (ACTOS*) 15 Mg Tablet, 15 MG PO DAILY, #30 TAB 10/03/18 Levothyroxine Sodium (LEVOTHYROXINE SODIUM) 100 Mcg Tablet, 100 MCG PO DAILY 03/25/14 Metformin Hcl (METFORMIN HCL) 500 Mg Tablet, 1000 MG PO BID, #60 TAB 03/25/14 OWEN ALICIA, DO Nov 25, 2019 18:51
--- NOTE | 2019-11-25 19:17 | NUR ---
Nursing report given to Denilson MASTERS. Pt awaiting doppler of RLE.
[2019-11-25 19:29] VITALS: BP 130/71
== END | disposition home or self-care (01) ==
LOC: ER 17:03
DX: M79.661 Pain in right lower leg (principal); I10 Essential (primary) hypertension; E11.9 Type 2 diabetes mellitus without complications; E78.5 Hyperlipidemia, unspecified; K21.9 Gastro-esophageal reflux disease without esophagitis
CPT/HCPCS: 93971; 99283